=== PATIENT | female | born 2000 | race Caucasian/White ===

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

== ENCOUNTER → 2020-02-27 | Outpatient (CLI) | payer BC ==
[2020-02-27 16:07] LABS: HEMATOCRIT 39.4 % (35.0-45.0); HEMOGLOBIN 14.1 g/dL (12.0-15.0); RED BLOOD COUNT 4.61 M/mm3 (4.10-5.30); RED CELL DISTRIBUTION WIDTH 11.9 % (11.5-14.5); WHITE BLOOD COUNT 5.4 K/mm3 (4.8-10.8)
[2020-02-27 16:19] LABS: ALBUMIN 4.6 g/dL (3.5-5.0)
[2020-02-27 16:20] LABS: CALCIUM 9.4 mg/dL (8.3-10.5)
[2020-02-27 16:21] LABS: TOTAL PROTEIN 8.4 g/dL (6.4-8.3)
[2020-02-27 16:23] LABS: TOTAL BILIRUBIN 0.8 mg/dL (0.2-1.2)
== END ==
LOC: LAB 15:55
PROVIDERS: Family Medicine
DX: F41.9 Anxiety disorder, unspecified (principal); R53.83 Other fatigue